=== PATIENT | female | born 1935 | race Caucasian/White ===

== ENCOUNTER → 2016-07-07 | Outpatient (CLI) | payer MEDICARE ==
--- NOTE | 2016-07-07 14:37 | CT ---
EXAMINATION TYPE: CT facial bones wo con DATE OF EXAM: 07/07/2016 2:20 PM COMPARISON: NONE HISTORY: 81-year-old female chronic maxillary sinusitis CT DLP: 636.40 mGycm Automated exposure control for dose reduction was used. TECHNIQUE: Noncontrast axial views of the paranasal sinuses were obtained. Coronal reconstructions pe rformed. FINDINGS: There is mild mucosal thickening within the left maxillary sinus with the trainee 4 mm polyp or mucos al retention cyst along the medial wall. Additional tiny 6 mm polyp or mucosal retention cyst along t he anterior wall of the right sphenoid sinus. The right frontal sinus is hypoplastic. Remainder of the paranasal sinuses show no significant mucosal thickening. There is no air-fluid level. Reactive kristen- osteogenesis is not seen. There is no destruction of the osseous vieira of the paranasal sinuses. The osteomeatal complexes are patent. Rightward nasal septal deviation. The imaged brain shows moderate generalized volume loss with increase in the subarachnoid space along the convexities. Visualized mastoid air cells and middle ear cavities are well pneumatized. Reformatted images confirm above findings. IMPRESSION: Mild chronic left maxillary sinus disease. Rightward nasal septal deviation.
== END | disposition home or self-care (01) ==
LOC: RADCTMAIN 13:48
PROVIDERS: ATTEND Family Medicine
DX: J32.0 Chronic maxillary sinusitis (principal); J34.2 Deviated nasal septum
CPT/HCPCS: 70486

== ENCOUNTER → 2017-05-14 | Outpatient (CLI) | payer MEDICARE ==
--- NOTE | 2017-05-14 12:57 | FL ---
EXAMINATION TYPE: FL barium swallow DATE OF EXAM: 05/14/2017 CLINICAL HISTORY: Dysphagia with mid esophageal and distal esophageal globus sensation. Reflux and di fficulty swallowing pills are also noted. TECHNIQUE: A double contrast esophagram is performed utilizing air and barium. A total of 1 minute and 20 seconds of fluoroscopic time was utilized during procedure. 36 images were saved. COMPARISON: None FINDINGS: There is a mild stricture at the gastroesophageal junction creating mild proximal esophagea l dilatation with 2 right lateral distal esophageal portion diverticula and 2 additional smaller more proximal diverticula. There is undulation of the esophageal mucosa and blunting of the secondary wav e subsequent to this distal esophageal mild obstruction. Moderate intraesophageal reflux is noted. No hiatal hernia seen. IMPRESSION: Mild gastroesophageal junction stricture creating proximal esophageal dilatation, moderat e intraesophageal reflux, blunting of the secondary peristaltic wave, and at least 4 right lateral di stal esophageal portion diverticula.
== END | disposition home or self-care (01) ==
LOC: RADFLMAIN 11:13
PROVIDERS: ATTEND Family Medicine
DX: K21.9 Gastro-esophageal reflux disease without esophagitis (principal); K22.5 Diverticulum of esophagus, acquired
CPT/HCPCS: 74220

== ENCOUNTER → 2017-05-18 | Day surgery (SDC) | payer MEDICARE ==
[2017-05-16 15:18] VITALS: BMI 24.7
[~2017-05-18] MED LIST: LACTATED RINGERS 1,000 ML IV SCH; LIDOCAINE 1% 20 ML VIAL (10MG/ML) FOR IV START INTRADERMA ONE; LIDOCAINE 1% INJ 10MG/ML (20 ML MDV) ONE; PROPOFOL 10 MG/ML 20 ML VIAL IV ONE
[2017-05-18 07:35] VITALS: RESP 18; TEMP 97.9
[2017-05-18 07:41] LABS: Glucose,Whole Blood 102 mg/dL (75-99)
--- NOTE | 2017-05-18 07:57 | P.PCN ---
Date of Procedure: 05/18/17 Procedure(s) Performed: BRIEF HISTORY: Patient is a 81-year-old, pleasant, female, scheduled for an upper endoscopy as a part of evaluation of intermittent dysphagia to solids on and off for the last 1 year duration. She recently had a barium esophagogram done that showed evidence of distal esophageal diverticula. The she is hence scheduled for an upper endoscopy with possible dilation. PROCEDURE PERFORMED: Esophagogastroduodenoscopy with biopsy. PREOPERATIVE DIAGNOSIS: Intermittent dysphagia to solids. IV sedation per anesthesia. PROCEDURE: After informed consent was obtained, the patient was brought into the endoscopy unit. IV sedation was administered by Anesthesia under continuous monitoring. Initially the Olympus GIF-140 video endoscope was inserted into the mouth. Esophagus intubated without any difficulty. It was gradually advanced into the stomach and duodenum and carefully examined. The bulb and the second part of the duodenum appeared normal. The scope at this time was withdrawn to the stomach, adequately insufflated with air, and upon careful examination, mucosa of the antrum, body, cardia and the fundus appeared normal. The scope was then withdrawn into the esophagus. The GE junction was located at 39 cm from the incisors. The esophagus appeared normal. There were no erosions or ulcerations seen. There were around 2 large wide mouth diverticula noted in the distal esophagus but no evidence of obvious esophageal stricture. Biopsies were done from the mid and distal esophagus to rule out eosinophilic esophagitis. The proximal cervical esophagus was carefully examined and there was no evidence of cervical valve or Zenker's diverticulum. The rest of the esophagus appeared normal and the patient tolerated the procedure well. IMPRESSION: 1. Distal esophageal diverticula with no evidence of esophageal stricture. 2. No evidence of esophagitis RECOMMENDATIONS: The findings of this examination were discussed with the patient as well as her family. Her symptoms are most likely related to esophageal dysmotility resulting in esophageal diverticulosis. At this time since his symptoms are intermittent epigastric that she continue with diet modification. If she has progressive symptoms in the future will consider proceeding with esophageal manometry to investigate this further. In regards to the GERD symptoms she can continue with him absent 20 mg twice daily and follow antireflux measures.
[2017-05-18 08:01] VITALS: BP 97/57
[2017-05-18 08:16] VITALS: PULSE 59
== END ==
LOC: ORWHC2ENDO 06:57
PROVIDERS: ATTEND Internal Medicine Gastroenterology
DX: K21.0 Gastro-esophageal reflux disease with esophagitis (principal); Q39.6 Congenital diverticulum of esophagus; I10 Essential (primary) hypertension; E78.5 Hyperlipidemia, unspecified; E07.9 Disorder of thyroid, unspecified; Z79.82 Long term (current) use of aspirin; Z79.890 Hormone replacement therapy; Z79.899 Other long term (current) drug therapy; Z88.6 Allergy status to analgesic agent; Z88.3 Allergy status to other anti-infective agents; Z88.2 Allergy status to sulfonamides; Z88.8 Allergy status to other drugs, medicaments and biological substances
CPT/HCPCS: 88305; 43239; J2001; J2704

== ENCOUNTER → 2018-05-27 | Outpatient (CLI) | payer MEDICARE ==
--- NOTE | 2018-05-28 09:20 | MM ---
Reason for exam: screening (asymptomatic). Last mammogram was performed 1 year and 5 months ago. History: Patient is postmenopausal and had first child at age 39. Family history of breast cancer in sister at age 79. Took estrogen for 10 years. Physical Findings: A clinical breast exam by your physician is recommended on an annual basis and results should be correlated with mammographic findings. MG 3D Screening Mammo W/Cad Bilateral CC and MLO view(s) were taken. Prior study comparison: January 03, 2017, bilateral MG 3d screening mammo w/cad. December 24, 2015, bilateral MG 3d diag mammo w/cad ALBERTO. There are scattered fibroglandular densities. No suspicious abnormality. ASSESSMENT: Negative, BI-RAD 1 RECOMMENDATION: Routine screening mammogram of both breasts in 1 year.
== END | disposition home or self-care (01) ==
LOC: RADMAMWWP 10:35
PROVIDERS: ATTEND Family Medicine
DX: Z12.31 Encounter for screening mammogram for malignant neoplasm of breast (principal)
CPT/HCPCS: 77063; 77067

== ENCOUNTER 2020-11-16 13:48 | Observation (INO) | payer MEDICARE ==
[2020-11-16] MEDS ORDERED: SODIUM CHLORIDE 0.9% 500 ML 500 ML IV STA (14:08)
--- NOTE | 2020-11-16 14:15 | ED ---
General Adult HPI - General Chief complaint: Abdominal Pain Stated complaint: Abd Pain Time Seen by Provider: 11/16/20 13:50 Source: patient, RN notes reviewed, old records reviewed Mode of arrival: ambulatory Limitations: no limitations - History of Present Illness Initial comments: This is an 85-year-old female who presents emergency department stating that this morning just after she took a shower started having some lower abdominal pain and she had a bowel movement and she states she had blood in her stool. Patient states she did have this once before many years ago. Patient denies being lightheaded or dizzy. Patient denies chest pain or palpitations. Patient denies any shortness of breath or difficulty breathing. Patient states she has no dysuria hematuria urinary frequency. Patient states she does have some lower abdominal pain remains. Patient denies any fever or chills. Patient denies any injury or trauma. Patient denies any blood thinners. - Related Data Home Medications Medication Instructions Recorded Confirmed Ferrous Sulfate [Feosol] 325 mg PO DAILY 05/16/17 11/16/20 Aspirin EC [Ecotrin Low Dose] 81 mg PO DAILY 11/16/20 11/16/20 Cyanocobalamin (Vitamin B-12) 1,000 mcg PO DAILY 11/16/20 11/16/20 [Vitamin B-12] Furosemide [Lasix] 20 mg PO DAILY PRN 11/16/20 11/16/20 Labetalol [Trandate] 100 mg PO BID 11/16/20 11/16/20 Levothyroxine Sodium 100 mcg PO DAILY 11/16/20 11/16/20 Lovastatin [Mevacor] 40 mg PO AC-SUPPER 11/16/20 11/16/20 Allergies Allergy/AdvReac Type Severity Reaction Status Date / Time chlorhexidine gluconate Allergy Rash/Hives Verified 11/16/20 15:18 [From Hibiclens] ciprofloxacin [From Cipro] AdvReac Nausea & Verified 11/16/20 15:18 Vomiting hydrocodone bitartrate AdvReac Nausea & Verified 11/16/20 15:18 [From Lortab] Vomiting sulfamethoxazole AdvReac Nausea & Verified 11/16/20 15:18 [From Bactrim] Vomiting trimethoprim [From Bactrim] AdvReac Nausea & Verified 11/16/20 15:18 Vomiting Review of Systems ROS Statement: Those systems with pertinent positive or pertinent negative responses have been documented in the HPI. ROS Other: All systems not noted in ROS Statement are negative. Past Medical History Past Medical History: Diabetes Mellitus, GERD/Reflux, Hyperlipidemia, Hypertension, Renal Disease, Thyroid Disorder Additional Past Medical History / Comment(s): RT Shoulder Dislocation. Hiatal Hernia. Diverticulosis. COLITIS. CHRONIC KIDNEY DISEASE. DRY, ITCHY SKIN. NEUROPATHY IN FEET. FEELS LIKE PM RX GETS STUCK IN THROAT. Multiple myeloma 10/2020 History of Any Multi-Drug Resistant Organisms: None Reported Past Surgical History: Section, Cholecystectomy, Orthopedic Surgery Additional Past Surgical History / Comment(s): Fatty tumor removed. EXC ALBERTO CataractS. LT HAND SURG. Past Anesthesia/Blood Transfusion Reactions: No Reported Reaction Past Psychological History: No Psychological Hx Reported Smoking Status: Never smoker Past Alcohol Use History: None Reported Past Drug Use History: None Reported - Past Family History Sister(s) Family Medical History: Cancer Additional Family Medical History / Comment(s): BREAST, OVARIAN. Brother(s) Family Medical History: Cancer General Exam - General Exam Comments Initial Comments: GENERAL: Patient is well-developed and well-nourished. Patient is nontoxic and well-hyd rated and is in no acute distress. ENT: Neck is soft and supple. No significant lymphadenopathy is noted. Oropharynx is clear. Moist mucous membranes. Neck has full range of motion without elicit ing any pain. EYES: The sclera were anicteric and conjunctiva were pink and moist. Extraocular m ovements were intact and pupils were equal round and reactive to light. Eyelids were unremarkable. PULMONARY: Unlabored respirations. Good breath sounds bilaterally. No audible rales rhonchi or wheezing was noted. CARDIOVASCULAR: There is a regular rate and rhythm without any murmurs gallops or rubs. Femoral pulses are equal bilaterally ABDOMEN: Soft and nontender with normal bowel sounds. No palpable organomegaly was noted. There is no palpable pulsatile mass. SKIN: Skin is clear with no lesions or rashes and otherwise unremarkable. NEUROLOGIC: Patient is alert and oriented x3. Cranial nerves II through XII are grossly intact. Motor and sensory are also intact. Normal speech, volume and content. Symmetrical smile. MUSCULOSKELETAL: Normal extremities with adequate strength and full range of motion. No lower extremity swelling or edema. No calf tenderness. LYMPHATICS: No significant lymphadenopathy is noted PSYCHIATRIC: Normal psychiatric evaluation. Limitations: no limitations Course Vital Signs 11/16/20 11/16/20 13:50 14:53 Temperature 97.6 F Pulse Rate 58 L 56 L Respiratory 18 20 Rate Blood Pressure 192/71 182/63 O2 Sat by Pulse 99 100 Oximetry Medical Decision Making - Medical Decision Making Patient had right red stool at home and one in the emergency department. I spoke with Dr. Grimaldo she agreed to admit the patient admitted the patient and wrote admitting orders - Lab Data Result diagrams: 11/16/20 14:38 11/16/20 14:38 Lab Results 11/16/20 11/16/20 11/16/20 Range/Units 14:38 14:38 14:38 WBC 14.3 H (3.8-10.6) k/uL RBC 4.52 (3.80-5.40) m/uL Hgb 13.5 (11.4-16.0) gm/dL Hct 39.8 (34.0-46.0) % MCV 88.2 (80.0-100.0) fL MCH 29.8 (25.0-35.0) pg MCHC 33.8 (31.0-37.0) g/dL RDW 13.5 (11.5-15.5) % Plt Count 232 (150-450) k/uL MPV 8.2 Neutrophils % 85 % Lymphocytes % 9 % Monocytes % 4 % Eosinophils % 0 % Basophils % 0 % Neutrophils # 12.2 H (1.3-7.7) k/uL Lymphocytes # 1.3 (1.0-4.8) k/uL Monocytes # 0.6 (0-1.0) k/uL Eosinophils # 0.1 (0-0.7) k/uL Basophils # 0.0 (0-0.2) k/uL PT (9.0-12.0) sec INR (<1.2) APTT (22.0-30.0) sec Sodium 134 L (137-145) mmol/L Potassium 5.4 H (3.5-5.1) mmol/L Chloride 105 (98-107) mmol/L Carbon Dioxide 20 L (22-30) mmol/L Anion Gap 9 mmol/L BUN 29 H (7-17) mg/dL Creatinine 1.32 H (0.52-1.04) mg/dL Est GFR (CKD-EPI)AfAm 42 (>60 ml/min/1.73 sqM) Est GFR (CKD-EPI)NonAf 36 (>60 ml/min/1.73 sqM) Glucose 129 H (74-99) mg/dL Calcium 10.0 (8.4-10.2) mg/dL Total Bilirubin 0.3 (0.2-1.3) mg/dL AST 33 (14-36) U/L ALT 17 (4-34) U/L Alkaline Phosphatase 76 (38-126) U/L Total Protein 7.0 (6.3-8.2) g/dL Albumin 4.4 (3.5-5.0) g/dL Amylase 69 (30-110) U/L Lipase 101 (23-300) U/L Urine Color Yellow Urine Appearance Clear (Clear) Urine pH 5.5 (5.0-8.0) Ur Specific [place] 1.021 (1.001-1.035) Urine Protein 2+ H (Negative) Urine Glucose (UA) Negative (Negative) Urine Ketones Negative (Negative) Urine Blood Trace H (Negative) Urine Nitrite Negative (Negative) Urine Bilirubin Negative (Negative) Urine Urobilinogen <2.0 (<2.0) mg/dL Ur Leukocyte Esterase Negative (Negative) Urine RBC 1 (0-5) /hpf Urine WBC 1 (0-5) /hpf Ur Squamous Epith Cells <1 (0-4) /hpf 11/16/20 Range/Units 15:01 WBC (3.8-10.6) k/uL RBC (3.80-5.40) m/uL Hgb (11.4-16.0) gm/dL Hct (34.0-46.0) % MCV (80.0-100.0) fL MCH (25.0-35.0) pg MCHC (31.0-37.0) g/dL RDW (11.5-15.5) % Plt Count (150-450) k/uL MPV Neutrophils % % Lymphocytes % % Monocytes % % Eosinophils % % Basophils % % Neutrophils # (1.3-7.7) k/uL Lymphocytes # (1.0-4.8) k/uL Monocytes # (0-1.0) k/uL Eosinophils # (0-0.7) k/uL Basophils # (0-0.2) k/uL PT 10.2 (9.0-12.0) sec INR 0.9 (<1.2) APTT 24.4 (22.0-30.0) sec Sodium (137-145) mmol/L Potassium (3.5-5.1) mmol/L Chloride (98-107) mmol/L Carbon Dioxide (22-30) mmol/L Anion Gap mmol/L BUN (7-17) mg/dL Creatinine (0.52-1.04) mg/dL Est GFR (CKD-EPI)AfAm (>60 ml/min/1.73 sqM) Est GFR (CKD-EPI)NonAf (>60 ml/min/1.73 sqM) Glucose (74-99) mg/dL Calcium (8.4-10.2) mg/dL Total Bilirubin (0.2-1.3) mg/dL AST (14-36) U/L ALT (4-34) U/L Alkaline Phosphatase (38-126) U/L Total Protein (6.3-8.2) g/dL Albumin (3.5-5.0) g/dL Amylase (30-110) U/L Lipase (23-300) U/L Urine Color Urine Appearance (Clear) Urine pH (5.0-8.0) Ur Specific [place] (1.001-1.035) Urine Protein (Negative) Urine Glucose (UA) (Negative) Urine Ketones (Negative) Urine Blood (Negative) Urine Nitrite (Negative) Urine Bilirubin (Negative) Urine Urobilinogen (<2.0) mg/dL Ur Leukocyte Esterase (Negative) Urine RBC (0-5) /hpf Urine WBC (0-5) /hpf Ur Squamous Epith Cells (0-4) /hpf Disposition Clinical Impression: GI bleed, Lower abdominal pain Disposition: ADMITTED IP TO THIS [facility] Referrals: Tori Grimaldo MD [Primary Care Provider] - 1-2 days Time of Disposition: 16:10
[2020-11-16 15:06] LABS: Basophils % (A) 0 %; Eosinophils # (A) 0.1 k/uL (0-0.7); Eosinophils % (A) 0 %; HCT 39.8 % (34.0-46.0); HGB 13.5 gm/dL (11.4-16.0); Lymphocytes # (A) 1.3 k/uL (1.0-4.8); Lymphocytes % (A) 9 %; MCH 29.8 pg (25.0-35.0); MCHC 33.8 g/dL (31.0-37.0); MCV 88.2 fL (80.0-100.0); Mean Platelet Volume 8.2; Monocytes # (A) 0.6 k/uL (0-1.0); Monocytes % (A) 4 %; Neutrophils # (A) 12.2 k/uL (1.3-7.7); Neutrophils % (A) 85 %; Platelet Count 232 k/uL (150-450); RBC 4.52 m/uL (3.80-5.40); RDW 13.5 % (11.5-15.5); WBC 14.3 k/uL (3.8-10.6)
[2020-11-16 15:15] LABS: Albumin 4.4 g/dL (3.5-5.0); Potassium 5.4 mmol/L (3.5-5.1); Total Bilirubin 0.3 mg/dL (0.2-1.3)
[2020-11-16 15:19] LABS: INR 0.9 (<1.2); Partial Thromboplastin Time 24.4 sec (22.0-30.0); Prothrombin Time 10.2 sec (9.0-12.0)
[2020-11-16 15:29] LABS: Appearance,Urine Clear (Clear); Bilirubin,Urine Negative (Negative); Blood,Urine Trace (Negative); Color,Urine Yellow; Glucose,Urine (UA) Negative (Negative); Ketones,Urine Negative (Negative); Leukocyte Esterase,Urine Negative (Negative); Nitrite,Urine Negative (Negative); PH, Urine 5.5 (5.0-8.0); Protein,Urine 2+ (Negative); RBC,Urine 1 /hpf (0-5); Specific Gravity,Urine 1.021 (1.001-1.035); Squamous Epithelial Cell,Urine <1 /hpf (0-4); Urobilinogen,Urine <2.0 mg/dL (<2.0); WBC,Urine 1 /hpf (0-5)
[2020-11-16] MEDS ORDERED: SODIUM CHLORIDE 0.9% 1,000 ML IV ONE (16:10)
[2020-11-16 22:35] LABS: Basophils % (A) 0 %; Eosinophils # (A) 0.1 k/uL (0-0.7); Eosinophils % (A) 1 %; HCT 41.6 % (34.0-46.0); HGB 13.7 gm/dL (11.4-16.0); Lymphocytes # (A) 1.4 k/uL (1.0-4.8); Lymphocytes % (A) 10 %; MCH 29.3 pg (25.0-35.0); MCV 88.9 fL (80.0-100.0); Mean Platelet Volume 9.3; Monocytes # (A) 0.7 k/uL (0-1.0); Monocytes % (A) 5 %; Neutrophils % (A) 84 %; Platelet Count 221 k/uL (150-450); RBC 4.68 m/uL (3.80-5.40); RDW 13.5 % (11.5-15.5); WBC 14.3 k/uL (3.8-10.6)
[2020-11-17 05:43] LABS: Basophils % (A) 0 %; Eosinophils % (A) 0 %; HCT 39.6 % (34.0-46.0); HGB 12.9 gm/dL (11.4-16.0); Lymphocytes # (A) 1.3 k/uL (1.0-4.8); Lymphocytes % (A) 11 %; MCH 29.3 pg (25.0-35.0); MCHC 32.6 g/dL (31.0-37.0); MCV 89.9 fL (80.0-100.0); Mean Platelet Volume 8.1; Monocytes # (A) 0.8 k/uL (0-1.0); Monocytes % (A) 6 %; Neutrophils # (A) 9.8 k/uL (1.3-7.7); Neutrophils % (A) 81 %; Platelet Count 231 k/uL (150-450); RBC 4.41 m/uL (3.80-5.40); WBC 12.1 k/uL (3.8-10.6)
[2020-11-17] MEDS ORDERED: FUROSEMIDE 20 MG TAB PO PRN (09:19)
[2020-11-17] MEDS: metroNIDAZOLE-NS PMX 500 MG in SALINE 1 100ML.BAG IVPB SCH ×3 (10:21→23:19)
[2020-11-17] MEDS ORDERED: IOPAMIDOL CONTRAST (ORAL USE) VIAL PO PRN (10:35)
--- NOTE | 2020-11-17 10:35 | P.HPIM ---
History of Present Illness H&P Date: 11/17/20 Chief Complaint: Abdominal pain, bright red blood per rectum This is an 85-year-old pleasant lady, well-known to my clinic. He has underlying history of diverticulosis, diabetic to light disease, admitted through the emergency room secondary to abdominal pain. She had pain for the past one day, while she was preparing for a yesterday morning. She apparently was constipated, however no stool skin mouth when she tried to quit, she R arm went back into the bathroom, she has to strain this time, now she wiped with some blood, thereafter she had multiple stools, mostly bloody, and mostly mucus. Patient has some nausea and vomiting, no fever no chills, no coug h, no sore event. Patient felt lightheaded and dizzy, but she did not pass out. She has previous admissions for the same problem, in 2014, for which Dr. Merida has done her colonoscopy at that time. Underlying history of diabetes mellitus, diet-controlled, hyperlipidemia, hypertension, and CK D stage III. There is a family history of ovarian cancer, patient has prior cholecystectomy and section. Emergency room no imaging was done of her abdomen, double basic count of 14.3, sodium 134, potassium 5.4, creatinine of 1.3, INR of 0.9. Patient was admitted for diverticular bleed, with diverticulosis and diverticulitis. CAT scan of the abdomen will be performed secondary to the abdomen pain, oral contrast only. Review of Systems Constitutional: Reports as per HPI, Denies anorexia, Denies chills, Denies chronic headaches, Denies chronic pain, Denies daytime sleepiness, Denies fatigue, Denies fever, Denies lethargy, Denies malaise, Denies night sweats, Denies poor appetite, Denies sweats, Denies weakness, Denies weight gain, Denies weight loss Ears, nose, mouth and throat: Reports as per HPI, Denies ant. neck pain, Denies bleeding gums, Denies dental pain, Denies dysphagia, Denies epistaxis, Denies headache, Denies hoarseness, Denies mouth pain, Denies nasal congestion, Denies nasal discharge, Denies neck fullness/pressure, Denies neck lump, Denies nose pain, Denies odynophagia, Denies post-nasal drip, Denies sinus pain, Denies sinus pressure, Denies swelling in mouth, Denies swelling in throat, Denies sore throat, Denies vertigo, Denies voice changes Breasts: Reports as per HPI Cardiovascular: Reports as per HPI, Denies irregular heart beat, Denies orthopnea, Denies shortness of breath Respiratory: Reports as per HPI, Denies congestion, Denies cough with sputum, Denies dyspnea Gastrointestinal: Reports as per HPI, Reports BRBPR, Reports constipation, Reports diarrhea, Reports nausea, Reports vomiting Genitourinary: Reports as per HPI, Denies abnormal vaginal bleeding, Denies hematuria, Denies menorrhagia, Denies stress incontinence Menstruation: Reports as per HPI, Denies postmenopausal Musculoskeletal: Reports as per HPI, Denies arm numbness/tingling, Denies hot joints, Denies leg numbness/tingling, Denies morning stiffness Integumentary: Reports as per HPI Neurological: Reports as per HPI, Denies aphasia, Denies ataxia, Denies balance difficulties, Denies burning pain, Denies change in mentation, Denies change in smell/taste, Denies change in speech, Denies confusion, Denies convulsions, Denies double vision, Denies gait dysfunction, Denies head injury, Denies headaches, Denies hearing difficulties, Denies lack of coordination, Denies loss of vision, Denies memory loss, Denies migraines, Denies motor disturbance, Denies numbness, Denies paralysis, Denies paresthesias, Denies seizures, Denies sensory deficit, Denies spasticity, Denies syncope, Denies tic, Denies tingling, Denies transient paralysis, Denies tremors, Denies vertigo, Denies weakness, Denies visual changes Psychiatric: Reports as per HPI, Denies anhedonia, Denies anxiety, Denies anxiety attacks, Denies change in appetite, Denies change in libido, Denies ch arnold in sleep habits, Denies confusion, Denies depression, Denies difficulty concentrating, Denies disorientation, Denies hallucinations, Denies hopelessness, Denies hypersomnia, Denies insomnia, Denies irritability, Denies memory loss, Denies mood swings, Denies paranoia, Denies sadness/tearfulness, Denies sleep disturbances, Denies suicidal ideation Endocrine: Reports as per HPI, Denies cold intolerance, Denies deepening of the voice, Denies excessive sweating, Denies excessive thirst, Denies fatigue, Denies flushing, Denies heat intolerance, Denies high blood sugars, Denies increase in ring/shoe/hat size, Denies low blood sugars, Denies nocturia, Denies palpitations, Denies polydipsia, Denies polyphagia, Denies polyuria, Denies proptosis, Denies recent glucocorticoid use, Denies thyroid mass, Denies weight change Hematologic/Lymphatic: Reports as per HPI, Denies easy bleeding, Denies easy bruising, Denies lymphadenopathy, Denies lymphedema, Denies thrombophilia Allergic/Immunologic: Reports as per HPI Past Medical History Past Medical History: Diabetes Mellitus, GERD/Reflux, Hyperlipidemia, Hypertension, Renal Disease, Thyroid Disorder Additional Past Medical History / Comment(s): RT Shoulder Dislocation. Hiatal Hernia. Diverticulosis. COLITIS. CHRONIC KIDNEY DISEASE. DRY, ITCHY SKIN. NEUROPATHY IN FEET. Multiple myeloma 10/[address] rivera, f/u with dr han; heart murmur History of Any Multi-Drug Resistant Organisms: None Reported Past Surgical History: Section, Cholecystectomy, Orthopedic Surgery Additional Past Surgical History / Comment(s): Fatty tumor removed. EXC ALBERTO CataractS. LT HAND SURG. Past Anesthesia/Blood Transfusion Reactions: No Reported Reaction Past Psychological History: No Psychological Hx Reported Smoking Status: Former smoker Past Alcohol Use History: None Reported Additional Past Alcohol Use History / Comment(s): SMOKED 20 YEARS EST, VERY MINIMAL, QUIT 1977. Past Drug Use History: None Reported - Past Family History Sister(s) Family Medical History: Cancer Additional Family Medical History / Comment(s): BREAST, OVARIAN. Brother(s) Family Medical History: Cancer Medications and Allergies Home Medications Medication Instructions Recorded Confirmed Type Ferrous Sulfate [Feosol] 325 mg PO DAILY 05/16/17 11/16/20 History Aspirin EC [Ecotrin Low Dose] 81 mg PO DAILY 11/16/20 11/16/20 History Cyanocobalamin (Vitamin B-12) 1,000 mcg PO DAILY 11/16/20 11/16/20 History [Vitamin B-12] Furosemide [Lasix] 20 mg PO DAILY PRN 11/16/20 11/16/20 History Labetalol [Trandate] 100 mg PO BID 11/16/20 11/16/20 History Levothyroxine Sodium 100 mcg PO DAILY 11/16/20 11/16/20 History Lovastatin [Mevacor] 40 mg PO AC-SUPPER 11/16/20 11/16/20 History Allergies Allergy/AdvReac Type Severity Reaction Status Date / Time chlorhexidine gluconate Allergy Rash/Hives Verified 11/16/20 15:18 [From Hibiclens] ciprofloxacin [From Cipro] AdvReac Nausea & Verified 11/16/20 15:18 Vomiting hydrocodone bitartrate AdvReac Nausea & Verified 11/16/20 15:18 [From Lortab] Vomiting sulfamethoxazole AdvReac Nausea & Verified 11/16/20 15:18 [From Bactrim] Vomiting trimethoprim [From Bactrim] AdvReac Nausea & Verified 11/16/20 15:18 Vomiting Physical Exam Vitals: Vital Signs Temp Pulse Pulse Resp BP BP Pulse Ox 11/17/20 04:37 97.8 F 71 20 151/72 94 L 11/17/20 03:35 97.4 F L 63 16 158/69 99 11/16/20 22:45 98.2 F 64 20 164/93 99 11/16/20 19:58 98.0 F 65 18 170/62 98 11/16/20 16:22 60 18 196/60 99 11/16/20 14:53 56 L 20 182/63 100 11/16/20 13:50 97.6 F 58 L 18 192/71 99 Intake and Output 11/16/20 11/17/20 11/17/20 22:59 06:59 14:59 Intake Total 225 Balance 225 Intake: Intake, IV Titration 225 Amount Sodium Chloride 0.9% 1, 225 000 ml @ 75 mls/hr IV . [id number] ONE Rx#:[id number] Oral 0 Other: Voiding Method Toilet Weight 57 kg - Constitutional General appearance: cooperative, no acute distress - EENT Eyes: EOMI, PERRLA, dentition normal, normal appearance ENT: NA/AT, normal oropharynx - Neck Neck: normal ROM - Respiratory Respiratory: bilateral: CTA, negative: diminished, dullness - Cardiovascular Rhythm: regular Heart sounds: normal: S1, S2 Abnormal Heart Sounds: no systolic murmur, no diastolic murmur, no rub, no S3 Gallop, no S4 Gallop, no click, no other - Gastrointestinal General gastrointestinal: normal bowel sounds, tenderness (Left lower quadrant, suprapubic) - Integumentary Integumentary: decreased turgor, normal - Neurologic Neurologic: CNII-XII intact - Musculoskeletal Musculoskeletal: gait normal, strength equal bilaterally - Psychiatric Psychiatric: A&O x's 3, appropriate affect, intact judgment & insight Results CBC & Chem 7: 11/17/20 05:07 11/16/20 14:38 Labs: Abnormal Lab Results - Last 24 Hours (Table) 11/16/20 11/16/20 11/16/20 Range/Units 14:38 14:38 14:38 WBC 14.3 H (3.8-10.6) k/uL Neutrophils # 12.2 H (1.3-7.7) k/uL Sodium 134 L (137-145) mmol/L Potassium 5.4 H (3.5-5.1) mmol/L Carbon Dioxide 20 L (22-30) mmol/L BUN 29 H (7-17) mg/dL Creatinine 1.32 H (0.52-1.04) mg/dL Glucose 129 H (74-99) mg/dL Urine Protein 2+ H (Negative) Urine Blood Trace H (Negative) 11/16/20 11/17/20 Range/Units 22:31 05:07 WBC 14.3 H 12.1 H (3.8-10.6) k/uL Neutrophils # 12.0 H 9.8 H (1.3-7.7) k/uL Sodium (137-145) mmol/L Potassium (3.5-5.1) mmol/L Carbon Dioxide (22-30) mmol/L BUN (7-17) mg/dL Creatinine (0.52-1.04) mg/dL Glucose (74-99) mg/dL Urine Protein (Negative) Urine Blood (Negative) Laboratory Results WBC 12.1 k/uL (3.8-10.6) H 11/17/20 05:07 RBC 4.41 m/uL (3.80-5.40) 11/17/20 05:07 Hgb 12.9 gm/dL (11.4-16.0) 11/17/20 05:07 Hct 39.6 % (34.0-46.0) 11/17/20 05:07 MCV 89.9 fL (80.0-100.0) 11/17/20 05:07 MCH 29.3 pg (25.0-35.0) 11/17/20 05:07 MCHC 32.6 g/dL (31.0-37.0) 11/17/20 05:07 RDW 14.0 % (11.5-15.5) 11/17/20 05:07 Plt Count 231 k/uL (150-450) 11/17/20 05:07 MPV 8.1 11/17/20 05:07 Neutrophils % 81 % 11/17/20 05:07 Lymphocytes % 11 % 11/17/20 05:07 Monocytes % 6 % 11/17/20 05:07 Eosinophils % 0 % 11/17/20 05:07 Basophils % 0 % 11/17/20 05:07 Neutrophils # 9.8 k/uL (1.3-7.7) H 11/17/20 05:07 Lymphocytes # 1.3 k/uL (1.0-4.8) 11/17/20 05:07 Monocytes # 0.8 k/uL (0-1.0) 11/17/20 05:07 Eosinophils # 0.0 k/uL (0-0.7) 11/17/20 05:07 Basophils # 0.0 k/uL (0-0.2) 11/17/20 05:07 PT 10.2 sec (9.0-12.0) 11/16/20 15:01 INR 0.9 (<1.2) 11/16/20 15:01 APTT 24.4 sec (22.0-30.0) 11/16/20 15:01 Sodium 134 mmol/L (137-145) L 11/16/20 14:38 Potassium 5.4 mmol/L (3.5-5.1) H 11/16/20 14:38 Chloride 105 mmol/L (98-107) 11/16/20 14:38 Carbon Dioxide 20 mmol/L (22-30) L 11/16/20 14:38 Anion Gap 9 mmol/L 11/16/20 14:38 BUN 29 mg/dL (7-17) H 11/16/20 14:38 Creatinine 1.32 mg/dL (0.52-1.04) H 11/16/20 14:38 Est GFR (CKD-EPI)AfAm 42 (>60 ml/min/1.73 sqM) 11/16/20 14:38 Est GFR (CKD-EPI)NonAf 36 (>60 ml/min/1.73 sqM) 11/16/20 14:38 Glucose 129 mg/dL (74-99) H 11/16/20 14:38 Calcium 10.0 mg/dL (8.4-10.2) 11/16/20 14:38 Total Bilirubin 0.3 mg/dL (0.2-1.3) 11/16/20 14:38 AST 33 U/L (14-36) 11/16/20 14:38 ALT 17 U/L (4-34) 11/16/20 14:38 Alkaline Phosphatase 76 U/L (38-126) 11/16/20 14:38 Total Protein 7.0 g/dL (6.3-8.2) 11/16/20 14:38 Albumin 4.4 g/dL (3.5-5.0) 11/16/20 14:38 Amylase 69 U/L (30-110) 11/16/20 14:38 Lipase 101 U/L (23-300) 11/16/20 14:38 Urine Color Yellow 11/16/20 14:38 Urine Appearance Clear (Clear) 11/16/20 14:38 Urine pH 5.5 (5.0-8.0) 11/16/20 14:38 Ur Specific Waite 1.021 (1.001-1.035) 11/16/20 14:38 Urine Protein 2+ (Negative) H 11/16/20 14:38 Urine Glucose (UA) Negative (Negative) 11/16/20 14:38 Urine Ketones Negative (Negative) 11/16/20 14:38 Urine Blood Trace (Negative) H 11/16/20 14:38 Urine Nitrite Negative (Negative) 11/16/20 14:38 Urine Bilirubin Negative (Negative) 11/16/20 14:38 Urine Urobilinogen <2.0 mg/dL (<2.0) 11/16/20 14:38 Ur Leukocyte Esterase Negative (Negative) 11/16/20 14:38 Urine RBC 1 /hpf (0-5) 11/16/20 14:38 Urine WBC 1 /hpf (0-5) 11/16/20 14:38 Ur Squamous Epith Cells <1 /hpf (0-4) 11/16/20 14:38 Blood Type A Positive 11/16/20 14:49 Blood Type Confirm A Positive 11/16/20 20:30 Blood Type Recheck No Previous Record 11/16/20 14:49 Bld Type Recheck Status CABO Indicated 11/16/20 14:49 Antibody Screen NEGATIVE 11/16/20 14:49 Spec Expiration Date 11/19/2020234811/16/20 14:49 Thrombosis Risk Factor Assmnt - DVT/VTE Prophylaxis DVT/VTE Prophylaxis: Low risk, early ambulation encouraged, Contraindicated - See note (GI bleed) - Choose All That Apply Any of the Below Risk Factors Present?: Yes Each Factor Represents 1 point: Obesity (BMI >25) Other Risk Factors: Yes Each Risk Factor Represents 3 Points: Age 75 years or older Other congenital or acquired thrombophilia - If yes, enter type in comment: No Thrombosis Risk Factor Assessment Total Risk Factor Score: 4 Thrombosis Risk Factor Assessment Level: Moderate Risk Assessment and Plan Plan: 1. Acute diverticulosis with diverticulitis, with bleed., CAT scan ora contrast only, involving the abdomen and pelvis, has tenderness and guarding in the left side. Patient will be started on clear liquid diet, patient was seen by Dr. West gastrology, secondary to GI bleeding. Hemoglobin will be monitored, might need blood transfusion, hemoglobin currently stable, she lost at least 1 g over the past 24 hours IV Levaquin, and IV Flagyl 2. Diabetes mellitus diet-controlled, A1c was controlled during her last visit with me. Follows with Dr. Lynn, endocrine 2. CK D stage III, avoid IV contrast, and nephrotoxins 4. Hypertension, on Trandate 100 mg twice a day, which we will continue 5. Hyperlipidemia on Lipitor 6. Hypothyroidism on 100 g levothyroxine daily no changes made 7. Vitamin B12 deficiency, on 1000 g daily 8 Iron deficiency anemia, on iron supplementation as outpatient, we will hold off at this time secondary to constipation. DVT prophylaxis with early ambulation, cannot get chemical prophylaxis secondary to GI bleed GI prophylaxis, Pepcid Patient will be admitted tonight or more,
[2020-11-17] MEDS ORDERED: FAMOTIDINE 20 MG/2 ML VIAL IV SCH (10:45)
--- NOTE | 2020-11-17 11:38 | P.CONS ---
History of Present Illness - Reason for Consult Consult date: 11/17/20 Lower GI bleed Requesting physician: Ludwin Rey - Chief Complaint Abdominal pain - History of Present Illness This a pleasant 85-year-old female who presented to emergency department yesterday with complaints of abdominal cramping followed by loose bloody stools. Her past medical history includes multiple myeloma, diabetes mellitus, GERD, hyperlipidemia, hypertension, chronic renal disease, and hypothyroidism. The patient states yesterday morning she started having abdominal cramping she tried to use the bathroom but was unable to have a bowel movement. States at that time she felt very lightheaded and weak, slightly diaphoretic and went and laid down. She then had to get up again had some lower abdominal cramping was able to go to the bathroom and at that time had loose stool mixed with a small amount of blood. She had several episodes following where she was having lower abdominal cramping followed by bright red blood per rectum. She states she did have one episode of nausea, with no vomiting. She denies any fevers or chills. She does have a history in 2014 of similar episode and was diagnosed with ischemic colitis. At that time she underwent a colonoscopy by Dr. Wade with findings of segmental colitis involving the descending and proximal sigmoid consistent with resolving ischemic colitis, biopsies obtained. Sigmoid diverticulosis with no evidence of acute diverticulitis or strictures. Less than ideal preparation but otherwise no obvious pathology or potential source of bleeding. Biopsy at that time showed minimal active colitis with ischemic type changes. Patient also underwent an upper endoscopy in May 2017 that showed distal esophageal diverticula with no evidence of esophageal stricture and no evidence of esophagitis. On admission patient had mild leukocytosis, WBC 14.3, hemoglobin 13.7, hematocrit 41.6, platelet count 221,000, INR 0.9. Today's repeat labs WBC 12.1, hemoglobin 12.9. Patient states she is starting to feel better, she had greater than 5-10 episodes of loose bowels which she states were all bright red blood through the night. States she had 1-2 this morning, her last one was much smaller amount. Denies any sharp pain in her abdomen, states just some mild cramping prior to having to use the bathroom. She is afebrile. Review of Systems REVIEW OF SYSTEMS: CARDIOPULMONARY: No chest pain or shortness of breath. Gastrointestinal: Lower abdominal cramping with loose bloody bowel movements. Mild nausea with one episode of vomiting yesterday. No hematemesis, coffee- ground emesis. GENITOURINARY: No dysuria or hematuria. MUSCULOSKELETAL: Reports normal range of motion., Joint pain. SKIN: No rashes. No jaundice. ENDOCRINE: No chills, fevers. No excessive weight gain or loss. No polydipsia or polyuria. PSYCHIATRIC: Unremarkable. NEUROLOGY: No change in mental status. Denies dizziness, headache. ENT: Vision unremarkable. CONSTITUTIONAL: No recent weight loss. No fever, chills, night sweats. Past Medical History Past Medical History: Diabetes Mellitus, GERD/Reflux, Hyperlipidemia, Hypertension, Renal Disease, Thyroid Disorder Additional Past Medical History / Comment(s): RT Shoulder Dislocation. Hiatal Hernia. Diverticulosis. COLITIS. CHRONIC KIDNEY DISEASE. DRY, ITCHY SKIN. NEUROPATHY IN FEET. Multiple myeloma 10/[address] rivera, f/u with dr han; heart murmur History of Any Multi-Drug Resistant Organisms: None Reported Past Surgical History: Section, Cholecystectomy, Orthopedic Surgery Additional Past Surgical History / Comment(s): Fatty tumor removed. EXC ALBERTO CataractS. LT HAND SURG. Past Anesthesia/Blood Transfusion Reactions: No Reported Reaction Past Psychological History: No Psychological Hx Reported Smoking Status: Former smoker Past Alcohol Use History: None Reported Additional Past Alcohol Use History / Comment(s): SMOKED 20 YEARS EST, VERY MINIMAL, QUIT 1977. Past Drug Use History: None Reported - Past Family History Sister(s) Family Medical History: Cancer Additional Family Medical History / Comment(s): BREAST, OVARIAN. Brother(s) Family Medical History: Cancer Medications and Allergies Home Medications Medication Instructions Recorded Confirmed Type Ferrous Sulfate [Feosol] 325 mg PO DAILY 05/16/17 11/16/20 History Aspirin EC [Ecotrin Low Dose] 81 mg PO DAILY 11/16/20 11/16/20 History Cyanocobalamin (Vitamin B-12) 1,000 mcg PO DAILY 11/16/20 11/16/20 History [Vitamin B-12] Furosemide [Lasix] 20 mg PO DAILY PRN 11/16/20 11/16/20 History Labetalol [Trandate] 100 mg PO BID 11/16/20 11/16/20 History Levothyroxine Sodium 100 mcg PO DAILY 11/16/20 11/16/20 History Lovastatin [Mevacor] 40 mg PO AC-SUPPER 11/16/20 11/16/20 History Allergies Allergy/AdvReac Type Severity Reaction Status Date / Time chlorhexidine gluconate Allergy Rash/Hives Verified 11/16/20 15:18 [From Hibiclens] ciprofloxacin [From Cipro] AdvReac Nausea & Verified 11/16/20 15:18 Vomiting hydrocodone bitartrate AdvReac Nausea & Verified 11/16/20 15:18 [From Lortab] Vomiting sulfamethoxazole AdvReac Nausea & Verified 11/16/20 15:18 [From Bactrim] Vomiting trimethoprim [From Bactrim] AdvReac Nausea & Verified 11/16/20 15:18 Vomiting Physical Exam Vitals: Vital Signs Temp Pulse Pulse Resp BP BP Pulse Ox 11/17/20 04:37 97.8 F 71 20 151/72 94 L 11/17/20 03:35 97.4 F L 63 16 158/69 99 11/16/20 22:45 98.2 F 64 20 164/93 99 11/16/20 19:58 98.0 F 65 18 170/62 98 11/16/20 16:22 60 18 196/60 99 11/16/20 14:53 56 L 20 182/63 100 11/16/20 13:50 97.6 F 58 L 18 192/71 99 Intake and Output 11/16/20 11/17/20 11/17/20 22:59 06:59 14:59 Intake Total 225 Balance 225 Intake: Intake, IV Titration 225 Amount Sodium Chloride 0.9% 1, 225 000 ml @ 75 mls/hr IV . [id number] ONE Rx#:[id number] Oral 0 Other: Voiding Method Toilet Weight 57 kg General appearance: The patient is alert, oriented, appears in no acute distress. HET: Head is normocephalic and atraumatic. Conjunctiva pink. Sclera anicteric. Neck: Supple without lymphadenopathy. Trachea midline. Heart: S1 S2. Regular rate and rhythm. Lungs: Clear to auscultation. Abdomen: Soft, left lower quadrant tenderness, nondistended with bowel sounds. No guarding or rigidity. Skin: No rashes. No jaundice. Extremities: Normal skin color and turgor. No pedal edema. Neurological: No focal deficits. Alert and oriented 3.. Results CBC & Chem 7: 11/17/20 05:07 11/16/20 14:38 Labs: Abnormal Lab Results - Last 24 Hours (Table) 11/16/20 11/16/20 11/16/20 Range/Units 14:38 14:38 14:38 WBC 14.3 H (3.8-10.6) k/uL Neutrophils # 12.2 H (1.3-7.7) k/uL Sodium 134 L (137-145) mmol/L Potassium 5.4 H (3.5-5.1) mmol/L Carbon Dioxide 20 L (22-30) mmol/L BUN 29 H (7-17) mg/dL Creatinine 1.32 H (0.52-1.04) mg/dL Glucose 129 H (74-99) mg/dL Urine Protein 2+ H (Negative) Urine Blood Trace H (Negative) 11/16/20 11/17/20 Range/Units 22:31 05:07 WBC 14.3 H 12.1 H (3.8-10.6) k/uL Neutrophils # 12.0 H 9.8 H (1.3-7.7) k/uL Sodium (137-145) mmol/L Potassium (3.5-5.1) mmol/L Carbon Dioxide (22-30) mmol/L BUN (7-17) mg/dL Creatinine (0.52-1.04) mg/dL Glucose (74-99) mg/dL Urine Protein (Negative) Urine Blood (Negative) Assessment and Plan (1) Lower GI hemorrhage Narrative/Plan: 85-year-old female who presented to the emergency department yesterday with complaints of lower abdominal cramping followed by loose bloody stools. She has a history in the past of ischemic colitis in 2014, at that time she underwent a colonoscopy by with findings of segmental colitis involving the descending and proximal sigmoid consistent with resolving ischemic colitis, sigmoid diverticulosis with no evidence of acute diverticulitis or strictures. She also has a history of dysphagia and underwent an EGD and 05/2017 with findings of a distal esophageal diverticula without any evidence of stricture, no esophagitis. Patient states she had multiple episodes throughout yesterday and the evening of bloody bowel movements, states they are bright red associated with lower abdominal cramping. She denies any nausea or vomiting. On admission she had a hemoglobin of 13.7, with a repeat today of 12.9. She had initial WBC of 14.3, today's repeat is 12.1. She is afebrile. Likely we are dealing with acute colitis, possible etiologies include ischemic, infectious, or inflammatory. Patient has been started on Levaquin. CT of the abdomen and pelvis obtained at this time due to patient's kidney function. Current Visit: No Status: Acute Code(s): K92.2 - GASTROINTESTINAL HEMORRHAGE, UNSPECIFIED SNOMED Code(s): 07951477 (2) Lower abdominal pain Current Visit: Yes Status: Acute Code(s): R10.30 - LOWER ABDOMINAL PAIN, UNSPECIFIED SNOMED Code(s): 64238600 (3) History of chronic kidney disease Current Visit: Yes Status: Acute Code(s): Z87.448 - PERSONAL HISTORY OF OTHER DISEASES OF URINARY SYSTEM SNOMED Code(s): 223751891 (4) Diabetes mellitus Current Visit: Yes Status: Acute Code(s): E11.9 - TYPE 2 DIABETES MELLITUS WITHOUT COMPLICATIONS SNOMED Code(s): 95443569 Plan: 1. Continue symptomatic and supportive care 2. Okay for clear liquid diet 3. C. diff, stool cultures ordered 4. Repeat CBC in the a.m. 5. Continue to monitor GI bleed 6. Agree with IV Levaquin/Flagyl as ordered 7. At this time no plans on colonoscopy. Further recommendations on endoscopic evaluation based on clinical course. Thank you for this consultation, we will continue to follow. Dr. Beth John I agree with the dictator's note, documented as a scribe by Linette Burleson.
[2020-11-17] MEDS: LABETALOL 100 MG TAB PO SCH ×2 (11:48→21:11)
[2020-11-17] MEDS: LEVOFLOXACIN 500MG-D5W PMX 500 MG in DEXTROSE/WATER 1 100ML.BAG IVPB SCH (11:48)
[2020-11-17] MEDS: ACETAMINOPHEN TAB 500 MG TAB PO PRN ×2 (13:41→21:12)
--- NOTE | 2020-11-17 14:31 | CT ---
EXAMINATION TYPE: CT abdomen pelvis wo con DATE OF EXAM: 11/17/2020 COMPARISON: 05/15/2014 INDICATION: Chronic diarrhea DLP: 702 mGycm, Automated exposure control for dose reduction was used. CONTRAST: 0 mL of Isovue 300. Study performed with Oral Contrast TECHNIQUE: Axial images were obtained from above the diaphragm to the pubic rami in the axial plane a t 5 mm thick sections. Reconstructed images are reviewed on the computer in the coronal plane. FINDINGS: Limited CT sections are obtained the lung bases. There are scattered areas of increased lung marking s within the lung bases suggestive for pulmonary fibrosis. Coronary artery calcification is present. Vascular calcification through the aorta is noted.. CT ABDOMEN: Anterior abdominal wall hernia is present which is widely patent but contains small bowel loops in the periumbilical region. Liver: Normal Spleen: Normal Pancreas: Atrophic Adrenal glands: The adrenal glands are normal. Gallbladder: Normal Kidneys: No masses are evident. No hydronephrosis is present. No cysts are present. No renal stone s are evident. Aorta: Vascular calcification is within the aorta. Inferior vena cava: Normal. CT PELVIS: Small amount of fluid may be within the cul-de-sac. Diverticular changes are within the sigmoid colon. Some wall thickening within the sigmoid colon may be present posterolaterally. Inflammatory changes are not identified. Clinical consideration of colit is is recommended. Additional workup for underlying neoplasm is recommended. The study is performed w ith oral contrast. There are loops of bowel lacking oral contrast limiting their evaluation. Appendix: Normal as visualized. Urinary bladder: Decompressed. This may account for some apparent wall thickening. Genitourinary structures: Uterus and ovaries appear normal Osseous structures: No suspicious lytic or sclerotic lesions. Facet hypertrophy and degenerative ram ges are through the lumbar spine IMPRESSIONS: 1. Diverticulosis without evidence of acute diverticulitis. 2. The lumen is not visualized through the sigmoid region some thickening may be present. Consider ad ditional workup. Differential diagnosis could include colitis and neoplasm. Lack of oral contrast in this region however may create this appearance. 2. Small amount of free fluid within the left posterior-lateral pelvis.
[2020-11-17] MEDS: ATORVASTATIN 10 MG TAB PO SCH (16:03)
[2020-11-18] MEDS: LEVOTHYROXINE 100 MCG TAB PO SCH (05:52)
[2020-11-18 06:00] LABS: HCT 35.2 % (34.0-46.0); HGB 11.8 gm/dL (11.4-16.0); MCH 30.1 pg (25.0-35.0); MCHC 33.7 g/dL (31.0-37.0); MCV 89.4 fL (80.0-100.0); Mean Platelet Volume 8.4; Platelet Count 180 k/uL (150-450); RBC 3.93 m/uL (3.80-5.40); RDW 13.6 % (11.5-15.5); WBC 10.8 k/uL (3.8-10.6)
[2020-11-18] MEDS: metroNIDAZOLE-NS PMX 500 MG in SALINE 1 100ML.BAG IVPB SCH ×3 (07:51→23:38)
[2020-11-18] MEDS: FERROUS SULFATE 325 MG TAB PO SCH (07:52)
[2020-11-18] MEDS: CYANOCOBALAMIN 500 MCG TAB PO SCH (07:52)
[2020-11-18] MEDS: LABETALOL 100 MG TAB PO SCH (07:52)
[2020-11-18] MEDS ORDERED: FAMOTIDINE 20 MG/2 ML VIAL IV SCH (09:00)
[2020-11-18] MEDS: LEVOFLOXACIN 500MG-D5W PMX 500 MG in DEXTROSE/WATER 1 100ML.BAG IVPB SCH (09:07)
[2020-11-18 09:50] LABS: African American GFR (CKD) 39.1 (60.0-200.0); Anion Gap 5.8 mmol/L (4.00-12.00); Calcium 8.9 mg/dL (8.7-10.3); Carbon Dioxide 20.2 mmol/L (21.6-31.8); Non-African American GFR(CKD) 33.7 (60.0-200.0); Potassium 4.4 mmol/L (3.5-5.5)
--- NOTE | 2020-11-18 12:09 | P.PN ---
Subjective Progress Note Date: 11/18/20 HISTORY OF PRESENT ILLNESS This is an 85-year-old pleasant lady, well-known to my clinic. He has underlyi ng history of diverticulosis, diabetic to light disease, admitted through the emergency room secondary to abdominal pain. She had pain for the past one day, while she was preparing for a yesterday morning. She apparently was constipated, however no stool skin mouth when she tried to quit, she R arm went back into the bathroom, she has to strain this time, now she wiped with some blood, thereafter she had multiple stools, mostly bloody, and mostly mucus. Patient has some nausea and vomiting, no fever no chills, no cough, no sore event. Patient felt lightheaded and dizzy, but she did not pass out. She has previous admissions for the same problem, in 2014, for which Dr. Merida has done her colonoscopy at that time. Underlying history of diabetes mellitus, diet- controlled, hyperlipidemia, hypertension, and CK D stage III. There is a family history of ovarian cancer, patient has prior cholecystectomy and section. Emergency room no imaging was done of her abdomen, double basic count of 14.3, sodium 134, potassium 5.4, creatinine of 1.3, INR of 0.9. Patient was admitted for diverticular bleed, with diverticulosis and diverticulitis. CAT scan of the abdomen will be performed secondary to the abdomen pain, oral contrast only. 11/18: CAT scan of the abdomen and pelvis revealed diverticulosis without acute diverticulitis. The lumen is not visualized through the sigmoid region but thickening may be present. Consider additional workup. Differential diagnosis could include colitis, neoplasm. Lack of oral contrast in this region however may create this appearance. Small amount of free fluid within the left posterior lateral pelvis. Patient states that she had bowel movement last evening that had just a very slight amount of blood. This morning stools are brown mucousy type. Abdominal pain is improving but she still has some abdominal cramps. Patient has been seen by GI for evaluation with plan for outpatient colonoscopy based on CAT scan report. Patient is currently on clear liquid diet. She has been afebrile, heart rate 63, blood pressure 123/63, pulse ox 90% on room air. REVIEW OF SYSTEMS Constitutional: No fever, no chills, no night sweats. No weight change. No weakness, fatigue or lethargy. No daytime sleepiness. EENT: No headache. No blurred vision or double vision, no loss of vision. No loss of Hearing, no ringing in the ears, no dizziness. No nasal drainage or congestion. No epistaxis. No sore throat. Lungs: No shortness of breath, cough, no sputum production. No wheezing. Cardiovascular: No chest pain, no lower extremity edema. No palpitations. No paroxysmal nocturnal dyspnea. No orthopnea. No lightheadedness or dizziness. No syncopal episodes. Abdominal: Reports abdominal pain improving. No nausea, vomiting. No diarrhea. No constipation. Reports bloody or tarry stools, improving No loss of appetite . Genitourinary: No dysuria, increased frequency, urgency. No urinary retention. Musculoskeletal: No myalgias. No muscle weakness, no gait dysfunction, no frequent falls. No back pain. No neck pain. Integumentary: No wounds, no lesions. No rash or pruritus. No unusual bruising. No change in hair or nails. Neurologic: No aphasia. No facial droop. No change in mentation. No head injury. No headache. No paralysis. No paresthesia. Psychiatric: No depression. No anxiety. No mood swings. Endocrine: No abnormal blood sugars. No weight change. PHYSICAL EXAMINATION Gen: This is an 85-year-old female. Patient is resting and appears to be comfortable and in no acute distress. HEENT: Head is atraumatic, normocephalic. Pupils equal, round. Sclerae is anicteric. NECK: Supple. No JVD. No lymphadenopathy. No thyromegaly. LUNGS: Clear to auscultation. No wheezes or rhonchi. No intercostal retractions. HEART: Regular rate and rhythm. No murmur. ABDOMEN: Soft. Bowel sounds are present. No masses. Left lower quadrant tenderness. EXTREMITIES: No pedal edema. No calf tenderness. NEUROLOGICAL: Patient is awake, alert and oriented x3. Cranial nerves 2 through 12 are grossly intact. ASSESSMENT AND PLAN 1. Acute diverticulosis with diverticulitis, with bleed., CAT scan as above. Continue clear liquids, consult with GI appreciated with plan for outpatient colonoscopy once inflammation has resolved. 2. Diabetes mellitus diet-controlled, A1c was controlled during her last visit with me. Follows with Dr. Ali, endocrine 2. CK D stage III, avoid IV contrast, and nephrotoxins 4. Hypertension, on Trandate 100 mg twice a day, which we will continue 5. Hyperlipidemia on Lipitor 6. Hypothyroidism on 100 g levothyroxine daily no changes made 7. Vitamin B12 deficiency, on 1000 g daily 8 Iron deficiency anemia, on iron supplementation as outpatient, we will hold off at this time secondary to constipation. DVT prophylaxis with early ambulation, cannot get chemical prophylaxis secondary to GI bleed GI prophylaxis, Pepcid DISCHARGE PLAN Home Impression and plan of care have been directed as dictated by the signing physician. Ivy Hart nurse practitioner acting as scribe for signing physician. Objective - Vital Signs Vital signs: Vital Signs Temp 98.2 F 11/18/20 04:25 Pulse 63 11/18/20 04:25 Resp 16 11/18/20 04:25 BP 123/63 11/18/20 04:25 Pulse Ox 98 11/18/20 04:25 Intake & Output 11/17/20 11/18/20 11/18/20 18:59 06:59 18:59 Intake Total 900 590 360 Balance 900 590 360 Intake: Intake, IV Titration 500 Amount Levofloxacin 500Mg-D5w 100 Pmx 500 mg In Dextrose/ Water 1 100ml.bag @ 100 mls/hr IVPB Q24H [facility] Rx#: [id number] Sodium Chloride 0.9% 1, 300 000 ml @ 75 mls/hr IV . [id number] [facility] Rx#:[id number] metroNIDAZOLE-NS PMX 500 100 mg In Saline 1 100ml.bag @ 100 mls/hr IVPB Q8HR [facility] Rx#:[id number] Oral 400 590 360 Other: Voiding Method Toilet Toilet # Voids 3 2 # Bowel Movements 2 - Labs CBC & Chem 7: 11/18/20 05:19 11/18/20 05:19 Labs: Abnormal Lab Results - Last 24 Hours (Table) 11/17/20 11/18/20 Range/Units 05:07 05:19 WBC 10.8 H (3.8-10.6) k/uL Hemoglobin A1c 6.4 H (4.0-6.0) % Microbiology - Last 24 Hours (Table) 11/17/20 12:50 Stool Culture - Preliminary Stool
--- NOTE | 2020-11-18 13:13 | P.PN ---
Subjective Progress Note Date: 11/18/20 Principal diagnosis: GI bleed, colitis This is a 85-year-old female who presented to the emergency department with complaints of abdominal cramping followed by loose bloody stools. She had multiple episodes of these loose bloody stools, mixed with mucus. Patient has a history of ischemic colitis and similar symptoms and underwent a colonoscopy in [address] Wade with findings of segmental colitis involving the descending and proximal sigmoid consistent with resolving ischemic colitis, sigmoid diverticulosis without evidence of acute diverticulitis or strictures, biopsy at that time also showed minimal active colitis with ischemic type changes. Patient states her last bowel movement with small amount of blood was yesterday evening, today she had a normal soft bowel movement which was brown and states had some mucus. States her abdominal cramping has improved. She denies any nausea or vomiting. She did undergo a CT of the abdomen and pelvis yesterday without contrast which showed diverticulosis without evidence of acute diverticulitis, the lumen is not visualized through the sigmoid regions some thickening may be present. Consider additional workup. Differential diagnosis could include colitis and neoplasm. Recommend oral contrast in this region however they create this appearance. Small amount of free fluid within the left posterior lateral pelvis. Hemoglobin is stable at 11.8. Objective - Vital Signs Vital signs: Vital Signs Temp 98.2 F 11/18/20 04:25 Pulse 63 11/18/20 04:25 Resp 16 11/18/20 04:25 BP 123/63 11/18/20 04:25 Pulse Ox 98 11/18/20 04:25 Intake & Output 11/17/20 11/18/20 11/18/20 18:59 06:59 18:59 Intake Total 900 590 Balance 900 590 Intake: Intake, IV Titration 500 Amount Levofloxacin 500Mg-D5w 100 Pmx 500 mg In Dextrose/ Water 1 100ml.bag @ 100 mls/hr IVPB Q24H [facility] Rx#: [id number] Sodium Chloride 0.9% 1, 300 000 ml @ 75 mls/hr IV . [id number] [facility] Rx#:[id number] metroNIDAZOLE-NS PMX 500 100 mg In Saline 1 100ml.bag @ 100 mls/hr IVPB Q8HR [facility] Rx#:[id number] Oral 400 590 Other: Voiding Method Toilet Toilet # Voids 3 2 # Bowel Movements 2 - Exam General appearance: The patient is alert, oriented, appears in no acute distress. HET: Head is normocephalic and atraumatic. Conjunctiva pink. Sclera anicteric. Neck: Supple without lymphadenopathy. Abdomen: Soft, mild left lower quadrant tenderness, nondistended with bowel sounds. No guarding or rigidity. Extremities: Normal skin color and turgor. No pedal edema Skin: No rashes, no jaundice Neurological: No focal deficits. Alert and oriented 3. - Labs CBC & Chem 7: 11/18/20 05:19 11/18/20 05:19 Labs: Abnormal Lab Results - Last 24 Hours (Table) 11/17/20 11/18/20 Range/Units 05:07 05:19 WBC 10.8 H (3.8-10.6) k/uL Hemoglobin A1c 6.4 H (4.0-6.0) % Microbiology - Last 24 Hours (Table) 11/17/20 12:50 Stool Culture - Preliminary Stool Assessment and Plan (1) Lower GI hemorrhage Narrative/Plan: 85-year-old female who presented to the emergency department yesterday with complaints of lower abdominal cramping followed by loose bloody stools. She has a history in the past of ischemic colitis in 2014, at that time she underwent a colonoscopy by with findings of segmental colitis involving the descending and proximal sigmoid consistent with resolving ischemic colitis, sigmoid diverticulosis with no evidence of acute diverticulitis or strictures. She also has a history of dysphagia and underwent an EGD and 05/2017 with findings of a distal esophageal diverticula without any evidence of stricture, no esophagitis. Patient states she had multiple episodes throughout yesterday and the evening of bloody bowel movements, states they are bright red associated with lower abdominal cramping. She denies any nausea or vomiting. On admission she had a hemoglobin of 13.7, with a repeat today of 12.9. She had initial WBC of 14.3, today's repeat is 12.1. She is afebrile. Likely we are dealing with acute colitis, possible etiologies include ischemic, infectious, or inflammatory. Patient has been started on Levaquin and Flagyl. CT of the abdomen and pelvis without contrast showed diverticulosis without evidence of acute diverticulitis, area in the sigmoid region that has some thickening that may be present, consider additional workup differential diagnosis could include colitis and neoplasm, lack of oral contrast in this region however may create this appearance. CT findings discussed with patient, discussed with patient recommend colonoscopy at some point. This could be done inpatient, or preferably and 4 weeks once colitis has resolved. Patient is agreeable to outpatient colonoscopy, this has been set up for 12/24/2020. Current Visit: No Status: Acute Code(s): K92.2 - GASTROINTESTINAL HEMORRHAGE, UNSPECIFIED SNOMED Code(s): 10794901 (2) Lower abdominal pain Current Visit: Yes Status: Acute Code(s): R10.30 - LOWER ABDOMINAL PAIN, UNSPECIFIED SNOMED Code(s): 70202191 (3) History of chronic kidney disease Current Visit: Yes Status: Acute Code(s): Z87.448 - PERSONAL HISTORY OF OTHER DISEASES OF URINARY SYSTEM SNOMED Code(s): 852269170 (4) Diabetes mellitus Current Visit: Yes Status: Acute Code(s): E11.9 - TYPE 2 DIABETES MELLITUS WITHOUT COMPLICATIONS SNOMED Code(s): 92392766 Plan: 1. Continue symptomatic and supportive care 2. Advance to full liquid diet 3. C. diff, stool cultures ordered. C. diff not ran as stool was formed. Stool culture pending area 4. Repeat CBC in the a.m. 5. Continue to monitor GI bleed 6. Agree with IV Levaquin/Flagyl as ordered 7. At this time no plans on colonoscopy. Recommend outpatient colonoscopy in 4 weeks, this has been scheduled for 12/24/2020. Thank you for this consultation, we will continue to follow. Dr. Beth John I agree with the dictator's note, documented as a scribe by Linette Burleson.
[2020-11-18 16:37] VITALS: RESP 16
[2020-11-18] MEDS: ACETAMINOPHEN TAB 500 MG TAB PO PRN (17:34)
[2020-11-18] MEDS: ATORVASTATIN 10 MG TAB PO SCH (18:03)
[2020-11-19] MEDS: LABETALOL 100 MG TAB PO SCH ×2 (00:33→09:19)
[2020-11-19 04:45] VITALS: BP 156/70; PULSE 66; TEMP 97.4
[2020-11-19] MEDS: LEVOTHYROXINE 100 MCG TAB PO SCH (06:01)
--- NOTE | 2020-11-19 08:56 | P.PN ---
Subjective Progress Note Date: 11/19/20 Principal diagnosis: GI bleed, colitis This is a 85-year-old female who presented to the emergency department with complaints of abdominal cramping followed by loose bloody stools. She had multiple episodes of these loose bloody stools, mixed with mucus. Patient has a history of ischemic colitis and similar symptoms and underwent a colonoscopy in [address] Wade with findings of segmental colitis involving the descending and proximal sigmoid consistent with resolving ischemic colitis, sigmoid diverticulosis without evidence of acute diverticulitis or strictures, biopsy at that time also showed minimal active colitis with ischemic type changes. Patient states her last bowel movement with small amount of blood was yesterday evening, today she had a normal soft bowel movement which was brown and states had some mucus. States her abdominal cramping has improved. She denies any nausea or vomiting. She did undergo a CT of the abdomen and pelvis without contrast which showed diverticulosis without evidence of acute diverticulitis, the lumen is not visualized through the sigmoid regions some thickening may be present. Consider additional workup. Differential diagnosis could include colitis and neoplasm. Recommend oral contrast in this region however they cr eate this appearance. Small amount of free fluid within the left posterior lateral pelvis. Seen and examined lying in bed. She is tolerating a full liquid diet. She states she did have a bowel movement this morning that was a little bit more loose, darker in color but no bright red blood. She denies any nausea or vomiting, states abdominal pain is improving but still has some mild left lower quadrant tenderness. She denies any fevers or chills. She is scheduled for outpatient colonoscopy on 12/24/2020 Dr. John Objective - Vital Signs Vital signs: Vital Signs Temp 97.4 F L 11/19/20 04:44 Pulse 66 11/19/20 04:44 Resp 16 11/19/20 04:44 BP 156/70 11/19/20 04:44 Pulse Ox 99 11/19/20 04:44 Intake & Output 11/18/20 11/19/20 11/19/20 18:59 06:59 18:59 Intake Total 960 Balance 960 Intake: Oral 960 Other: Voiding Method Toilet Toilet # Voids 2 - Exam General appearance: The patient is alert, oriented, appears in no acute distress. HET: Head is normocephalic and atraumatic. Conjunctiva pink. Sclera anicteric. Neck: Supple without lymphadenopathy. Abdomen: Soft, mild left lower quadrant tenderness, nondistended with bowel sounds. No guarding or rigidity. Extremities: Normal skin color and turgor. No pedal edema Skin: No rashes, no jaundice Neurological: No focal deficits. Alert and oriented 3. - Labs CBC & Chem 7: 11/18/20 05:19 11/18/20 05:19 Labs: Abnormal Lab Results - Last 24 Hours (Table) 11/18/20 Range/Units 05:19 Chloride 111 H (96-109) mmol/L Carbon Dioxide 20.2 L (21.6-31.8) mmol/L Est GFR (CKD-EPI)AfAm 39.1 L (60.0-200.0) Est GFR (CKD-EPI)NonAf 33.7 L (60.0-200.0) Assessment and Plan (1) Lower GI hemorrhage Narrative/Plan: 85-year-old female who presented to the emergency department yesterday with c omplaints of lower abdominal cramping followed by loose bloody stools. She has a history in the past of ischemic colitis in 2014, at that time she underwent a colonoscopy by with findings of segmental colitis involving the descending and proximal sigmoid consistent with resolving ischemic colitis, sigmoid diverticulosis with no evidence of acute diverticulitis or strictures. She also has a history of dysphagia and underwent an EGD and 05/2017 with findings of a distal esophageal diverticula without any evidence of stricture, no esophagitis. Patient states she had multiple episodes throughout yesterday and the evening of bloody bowel movements, states they are bright red associated with lower abdominal cramping. She denies any nausea or vomiting. On admission she had a hemoglobin of 13.7, with a repeat today of 12.9. She had initial WBC of 14.3, today's repeat is 12.1. She is afebrile. Likely we are dealing with acute colitis, possible etiologies include ischemic, infectious, or inflammatory. Patient has been started on Levaquin and Flagyl. CT of the abdomen and pelvis without contrast showed diverticulosis without evidence of acute diverticulitis, area in the sigmoid region that has some thickening that may be present, consider additional workup differential diag nosis could include colitis and neoplasm, lack of oral contrast in this region however may create this appearance. CT findings discussed with patient, discussed with patient recommend colonoscopy at some point. This could be done inpatient, or preferably and 4 weeks once colitis has resolved. Patient is agreeable to outpatient colonoscopy, this has been set up for 12/24/2020. Patient is scheduled for outpatient colonoscopy on 12/24/[address] John Current Visit: No Status: Acute Code(s): K92.2 - GASTROINTESTINAL HEMORRHAGE, UNSPECIFIED SNOMED Code(s): 90758125 (2) Lower abdominal pain Current Visit: Yes Status: Acute Code(s): R10.30 - LOWER ABDOMINAL PAIN, UNSPECIFIED SNOMED Code(s): 70609490 (3) History of chronic kidney disease Current Visit: Yes Status: Acute Code(s): Z87.448 - PERSONAL HISTORY OF OTHER DISEASES OF URINARY SYSTEM SNOMED Code(s): 931653358 (4) Diabetes mellitus Current Visit: Yes Status: Acute Code(s): E11.9 - TYPE 2 DIABETES MELLITUS WITHOUT COMPLICATIONS SNOMED Code(s): 50998133 Plan: 1. Continue symptomatic and supportive care 2. Continue full liquid diet, advance as tolerated 3. C. diff, stool cultures ordered. C. diff not ran as stool was formed. Stool culture pending area 4. At this time no plans on colonoscopy. Recommend outpatient colonoscopy in 4 weeks, this has been scheduled for 12/24/2020. 5. Patient is cleared for discharge from gastroenterology Thank you for allowing us to participate in the care of the patient, the GI service will sign off, gastroenterology will not be available at the hospital t his weekend and if further evaluation by gastroenterology is required the patient will need transfer as per the primary team's discretion. Dr. Beth John I agree with the dictator's note, documented as a scribe by Linette Burleson.
[2020-11-19] MEDS ORDERED: FAMOTIDINE 20 MG TAB PO SCH (09:00)
[2020-11-19] MEDS ORDERED: LEVOFLOXACIN 250 MG TAB PO SCH (09:00)
[2020-11-19] MEDS: CYANOCOBALAMIN 500 MCG TAB PO SCH (09:18)
[2020-11-19] MEDS: metroNIDAZOLE-NS PMX 500 MG in SALINE 1 100ML.BAG IVPB SCH (09:18)
[2020-11-19] MEDS: FERROUS SULFATE 325 MG TAB PO SCH (09:18)
--- NOTE | 2020-11-19 10:45 | P.DS ---
Providers Date of admission: 11/16/20 16:10 Expected date of discharge: 11/19/20 Attending physician: Tori Grimaldo Consults: 11/16/20 16:10 Consult Physician Urgent Consulting Provider: Alena John Consult Reason/Comments: GI bleed Do you want consulting provider notified?: Yes Primary care physician: Tori Dillan [facility] Course: HISTORY OF PRESENT ILLNESS This is an 85-year-old pleasant lady, well-known to my clinic. He has underlying history of diverticulosis, diabetic to light disease, admitted through the emergency room secondary to abdominal pain. She had pain for the past one day, while she was preparing for a yesterday morning. She apparently was constipated, however no stool skin mouth when she tried to quit, she R arm went back into the bathroom, she has to strain this time, now she wiped with some blood, thereafter she had multiple stools, mostly bloody, and mostly mucus. Patient has some nausea and vomiting, no fever no chills, no cough, no sore event. Patient felt lightheaded and dizzy, but she did not pass out. She has previous admissions for the same problem, in 2014, for which Dr. Merida has done her colonoscopy at that time. Underlying history of diabetes mellitus, diet-controlled, hyperlipidemia, hypertension, and CK D stage III. There is a family history of ovarian cancer, patient has prior cholecystectomy and section. Emergency room no imaging was done of her abdomen, double basic count of 14.3, sodium 134, potassium 5.4, creatinine of 1.3, INR of 0.9. Patient was admitted for diverticular bleed, with diverticulosis and diverticulitis. CAT scan of the abdomen will be performed secondary to the abdomen pain, oral contrast only. 11/18: CAT scan of the abdomen and pelvis revealed diverticulosis without acute diverticulitis. The lumen is not visualized through the sigmoid region but thickening may be present. Consider additional workup. Differential diagnosis could include colitis, neoplasm. Lack of oral contrast in this region however may create this appearance. Small amount of free fluid within the left posterior lateral pelvis. Patient states that she had bowel movement last evening that had just a very slight amount of blood. This morning stools are brown mucousy type. Abdominal pain is improving but she still has some abdominal cramps. Patient has been seen by GI for evaluation with plan for outpatient colonoscopy based on CAT scan report. Patient is currently on clear liquid diet. She has been afebrile, heart rate 63, blood pressure 123/63, pulse ox 90% on room air. 11/19: Patient concerned that she had dark stool in the toilet which she saved, note the patient is on chronic ferrous sulfate. No bright red bleeding noted. She has been seen by GI this morning and plan is for colonoscopy as an outpatient on December 24. Patient's abdominal discomfort is in proving and is only having discomfort and cramps when she needs to have a bowel movement, no nausea or vomiting. Patient has been afebrile, heart rate 66, blood pressure 156/70, pulse ox 99% on room air. Patient will be discharged home today in stable condition. ASSESSMENT AND PLAN 1. Acute diverticulosis with diverticulitis, with bleed. 2. Diabetes mellitus diet-controlled 2. CKD stage III 4. Hypertension 5. Hyperlipidemia 6. Hypothyroidism 7. Vitamin B12 deficiency 8 Iron deficiency anemia, on iron supplementation DISCHARGE PLAN Home Impression and plan of care have been directed as dictated by the signing physician. Ivy Hart nurse practitioner acting as scribe for signing physi juvencio. Patient Condition at Discharge: Good Plan - Discharge Summary Discharge Rx Participant: Yes New Discharge Prescriptions: New metroNIDAZOLE [Flagyl] 500 mg PO TID #21 tab Levofloxacin [Levaquin] 250 mg PO Q24HR #7 tab Continue Ferrous Sulfate [Iron (65 MG Elemental)] 325 mg PO DAILY Aspirin EC [Ecotrin Low Dose] 81 mg PO DAILY Labetalol [Trandate] 100 mg PO BID Levothyroxine Sodium 100 mcg PO DAILY Cyanocobalamin (Vitamin B-12) [Vitamin B-12] 1,000 mcg PO DAILY Lovastatin [Mevacor] 40 mg PO AC-SUPPER Furosemide [Lasix] 20 mg PO DAILY PRN PRN Reason: Edema Discharge Medication List Ferrous Sulfate [Iron (65 MG Elemental)] 325 mg PO DAILY 05/16/17 [History] Aspirin EC [Ecotrin Low Dose] 81 mg PO DAILY 11/16/20 [History] Cyanocobalamin (Vitamin B-12) [Vitamin B-12] 1,000 mcg PO DAILY 11/16/20 [History] Furosemide [Lasix] 20 mg PO DAILY PRN 11/16/20 [History] Labetalol [Trandate] 100 mg PO BID 11/16/20 [History] Levothyroxine Sodium 100 mcg PO DAILY 11/16/20 [History] Lovastatin [Mevacor] 40 mg PO AC-SUPPER 11/16/20 [History] Levofloxacin [Levaquin] 250 mg PO Q24HR #7 tab 11/19/20 [Rx] metroNIDAZOLE [Flagyl] 500 mg PO TID #21 tab 11/19/20 [Rx] Follow up Appointment(s)/Referral(s): Alena John MD [STAFF PHYSICIAN] - 12/24/20 (12/24/20 Colonoscopy. Office will call you and give time and prep) Tori Grimaldo MD [Primary Care Provider] - 1 Week Patient Instructions/Handouts: Rectal Bleeding (DC), Low Fiber Diet (DC) Activity/Diet/Wound Care/Special Instructions: Low fiber diet Discharge Disposition: HOME SELF-CARE
== END 2020-11-19 12:10 | disposition home or self-care (01) ==
LOC: EC 13:48 → INTOOBSV 16:10 → 5NMEDONC 16:10 → UNDODISIN 11-19 12:10
PROVIDERS: ADMIT Family Medicine; ATTEND Family Medicine
DX: K57.33 Diverticulitis of large intestine without perforation or abscess with bleeding (principal); K57.31 Diverticulosis of large intestine without perforation or abscess with bleeding; I12.9 Hypertensive chronic kidney disease with stage 1 through stage 4 chronic kidney disease, or unspecified chronic kidney disease; E11.22 Type 2 diabetes mellitus with diabetic chronic kidney disease; N18.30 Chronic kidney disease, stage 3 unspecified; E78.5 Hyperlipidemia, unspecified; E03.9 Hypothyroidism, unspecified; E53.8 Deficiency of other specified B group vitamins; D50.9 Iron deficiency anemia, unspecified; K21.9 Gastro-esophageal reflux disease without esophagitis; K44.9 Diaphragmatic hernia without obstruction or gangrene; E11.40 Type 2 diabetes mellitus with diabetic neuropathy, unspecified; G62.9 Polyneuropathy, unspecified; E66.9 Obesity, unspecified; Z68.25 Body mass index [BMI] 25.0-25.9, adult; R61 Generalized hyperhidrosis; C90.00 Multiple myeloma not having achieved remission; R01.1 Cardiac murmur, unspecified; Z90.49 Acquired absence of other specified parts of digestive tract; Z87.19 Personal history of other diseases of the digestive system; Z87.891 Personal history of nicotine dependence; Z79.82 Long term (current) use of aspirin; Z79.899 Other long term (current) drug therapy; Z79.890 Hormone replacement therapy; Z88.1 Allergy status to other antibiotic agents; Z88.5 Allergy status to narcotic agent; Z88.2 Allergy status to sulfonamides; Z91.048 Other nonmedicinal substance allergy status; Z80.41 Family history of malignant neoplasm of ovary; Z80.3 Family history of malignant neoplasm of breast
CPT/HCPCS: 96376; 96361 ×3; 96365; 96366 ×3; 96367; 96375; 99285; 36415; 86900; 86901; 80053; 80048; 82150; 83690; 85025 ×2; 85027; 85610; 85730; 86850; 81001; 87045; 87046; 83036; 74176; G0378 ×4; J1956 ×2; 96360

== ENCOUNTER 2020-12-24 06:40 | Day surgery (SDC) | payer MEDICARE ==
[2020-12-22 10:34] VITALS: BMI 24.2
[~2020-12-24 06:40] MED LIST changes: -LIDOCAINE 1% 20 ML VIAL (10MG/ML) FOR IV START INTRADERMA ONE; -LIDOCAINE 1% INJ 10MG/ML (20 ML MDV) ONE; -PROPOFOL 10 MG/ML 20 ML VIAL IV ONE
[2020-12-24] MEDS ORDERED: LACTATED RINGERS 1,000 ML IV ONE ×2 (07:24)
[2020-12-24 07:34] LABS: Glucose,Whole Blood 98 mg/dL (75-99)
[2020-12-24] MEDS ORDERED: PROPOFOL 10 MG/ML 20 ML VIAL IV ONE (07:47)
[2020-12-24 07:54] VITALS: TEMP 98
--- NOTE | 2020-12-24 08:02 | P.PCN ---
Date of Procedure: 12/24/20 Procedure(s) Performed: BRIEF HISTORY: Patient is a 85-year-old pleasant white female scheduled for an elective colonoscopy as a part of evaluation change in bowel habits for the last several months duration. PROCEDURE PERFORMED: Colonoscopy. PREOPERATIVE DIAGNOSIS: Change in bowel habits with worsening constipation IV sedation per Anesthesia. PROCEDURE: After informed consent was obtained, the patient, was brought into the endoscopy unit. IV sedation was administered by Anesthesia under continuous monitoring. Digital rectal examination was normal. Initially the Olympus CF-160 flexible video colonoscope was then inserted in the rectum, gradually advanced into the cecum without any difficulty. Careful examination was performed as the scope was gradually being withdrawn. Ileocecal valve and the appendiceal orifice were visualized and appeared normal. Prep was excellent. Mucosa of the cecum, ascending colon, transverse colon, descending colon, sigmoid colon, and rectum appeared normal. Moderate sigmoid diverticulosis seen. Retroflexion was performed in the rectum and no lesions were seen. The patient tolerated the procedure well. IMPRESSION: Normal-appearing colon from rectum to cecum with no evidence of colorectal neoplasia. Moderate sigmoid diverticulosis. RECOMMENDATIONS: Findings of this examination were discussed with the patient as well as a family.. She was advised to start on MiraLAX 1 scoop daily and continue with a high-fiber diet.
[2020-12-24 08:41] VITALS: BP 125/62; PULSE 65; RESP 16
== END 2020-12-24 09:00 | disposition home or self-care (01) ==
LOC: ORWHC2ENDO 06:40
PROVIDERS: ATTEND Internal Medicine Gastroenterology
DX: K57.30 Diverticulosis of large intestine without perforation or abscess without bleeding (principal); K59.00 Constipation, unspecified
CPT/HCPCS: G0121; J2704

== ENCOUNTER → 2021-02-21 | Outpatient (CLI) | payer MEDICARE ==
--- NOTE | 2021-02-23 12:21 | MM ---
Reason for exam: screening (asymptomatic). Last mammogram was performed 1 year and 5 months ago. History: Patient is postmenopausal and had first child at age 39. Family history of breast cancer in sister at age 79. Took estrogen for 10 years beginning at age 48. Physical Findings: A clinical breast exam by your physician is recommended on an annual basis and results should be correlated with mammographic findings. MG 3D Screening Mammo W/Cad Bilateral CC and MLO view(s) were taken. Prior study comparison: October 07, 2019, bilateral MG 3d screening mammo w/cad. May 27, 2018, bilateral MG 3d screening mammo w/cad. There are scattered fibroglandular densities. There is chronic nodularity in the right breast. No significant changes when compared with prior studies. ASSESSMENT: Negative, BI-RAD 1 RECOMMENDATION: Routine screening mammogram of both breasts in 1 year.
== END | disposition home or self-care (01) ==
LOC: RADMAMWWP 16:18
PROVIDERS: ATTEND Family Medicine
DX: Z12.31 Encounter for screening mammogram for malignant neoplasm of breast (principal)
CPT/HCPCS: 77063; 77067

== ENCOUNTER → 2022-02-22 | Outpatient (CLI) | payer MEDICARE ==
--- NOTE | 2022-02-22 16:10 | BD ---
EXAMINATION TYPE: Axial Bone Density DATE OF EXAM: 02/22/2022 COMPARISON: 10/07/2019 CLINICAL HISTORY: 86 years old Female. ICD-10 CODE: Z78.0 post menopausal wo HRT Height: 58 Weight: 115 FRAX RISK QUESTIONS: Family History (Parent hip fracture): NO History of Fracture in Adulthood: NO Secondary Osteoporosis: NO Rheumatoid Arthritis: NO RISK FACTORS HISTORY OF: Family History of Osteoporosis: NO Active: YES Diet low in dairy products/other sources of calcium: YES Postmenopausal woman: YES Lost more than 2 inches in height since high school: Frequent falls: NO Poor Health: NO Hyperparathyroidism: NO Adrenal Insufficiency: NO MEDICATIONS: Thyroid Medications: YES Which medication: Synthroid How Lon+ YEARS Additional Medications: YES HBP , VIT B12 , REFLUX , CHOLESTEROL , PAIN MEDS EXAM MEASUREMENTS: Bone mineral densitometry was performed using the [employer]. Bone mineral density as measured about the Lumbar spine is: ----- L1-L4(G/cm2): 1.353 T Score Values are as follows: ----- L1: -0.1 ----- L2: 0.7 ----- L3: 2.1 ----- L4: 2.4 ----- L1-L4: 1.4 Bone mineral density has: Increased 3.1% since study of: 10/07/2019 Bone mineral density about the R hip (g/cm2): 0.704 Bone mineral density about the L hip (g/cm2): 0.730 T Score values are as follows: -----R Neck: -2.2 -----L Neck: -1.6 -----R Total: -2.4 -----L Total: -2.2 Bone mineral density has: Decreased -0.7% since study of: 10/07/2019 FRAX%s: The graph provided illustrates a 14.4% chance for a major osteoporotic fx and a 5.0% chance f or the hips probability for fx in 10 years time. IMPRESSION: Osteopenia (T Score between -2.5 and -1). There is slightly increased risk of fracture and the patient may be considered for treatment. Re-Screen 2-5 years. NOTE: T-SCORE=SD OF THE YOUNG ADULT MEAN.
--- NOTE | 2022-02-23 15:39 | MM ---
Reason for Exam: Screening (asymptomatic). Last screening mammogram was performed 12 month(s) ago. Patient History: Menarche at age 11. First Full-Term at age 39. Late child-bearing (after 28). Postmenopausal. Estrogen for 10 years from age 48 until age 58. Sister had breast cancer, age 79. Prior Study Comparison: 05/27/2018 Bilateral Screening Mammogram, [facility]. 10/07/2019 Bilateral Screening Mammogram, [facility]. 02/21/2021 Bilateral Screening Mammogram, [facility]. Tissue Density: There are scattered fibroglandular densities. Findings: Analyzed By CAD. Findings compared symmetrical and stable. No significant interval change is evident. Benign focal asymmetric density appears to be within the right craniocaudal view present previously. No suspicious groups of microcalcifications, spiculated or lobular masses, architectural distortion or other secondary signs of malignancy are mammographically apparent. Overall Assessment: Benign, BI-RAD 2 Management: Screening Mammogram of both breasts in 1 year. A negative mammogram report should not preclude additional follow up of suspicious palpable abnormalities. Patient should continue monthly self breast exam. A clinical breast exam by your physician is recommended on an annual basis and results should be correlated with mammographic findings. Electronically signed and approved by: Fermin Schrader D.O. Radiologis
== END | disposition home or self-care (01) ==
LOC: RADMAMWWP 13:40
PROVIDERS: ATTEND Family Medicine
DX: Z12.31 Encounter for screening mammogram for malignant neoplasm of breast (principal); M85.89 Other specified disorders of bone density and structure, multiple sites; E21.3 Hyperparathyroidism, unspecified; Z78.0 Asymptomatic menopausal state; Z80.3 Family history of malignant neoplasm of breast
CPT/HCPCS: 77063; 77067; 77080